=== PATIENT | female | born 1965 | race Caucasian/White ===

== ENCOUNTER 2024-12-07 06:56 | Day surgery (SDC) | payer OTHER ==
[2024-12-05 15:07] LABS: Absolute Eosinophils 0.2 K/uL (0-0.5); Absolute Lymphocytes (CBC) 1.9 K/uL (0.7-4.9); Absolute Monocytes 0.6 K/uL (0.1-1.3); Absolute Neutrophil 4.5 K/uL (1.8-8.0); Basophils % 0.4 % (0-1.3); Eosinophils % 2.7 % (0-4.4); Hematocrit 38.6 % (36.0-45.0); Hemoglobin 13.1 g/dL (12.0-15.0); Lymphocytes % 26.7 % (15.3-44.8); MCH 32.2 pg (27.0-35.0); MCHC 33.8 g/dL (32.0-36.0); MCV 95.1 fL (80-100); MPV 7.1 fL (7.6-11.3); Neutrophils % 62.2 % (41.7-73.7); Nucleated Red Blood Cells % 0.1 % (0-0); Platelets 347 thou/uL (152-406); RBC Red Blood Cell Count 4.06 M/uL (3.86-4.86); Red Cell Distribution Width 13.1 % (12.1-15.2)
[2024-12-05 15:23] LABS: ALT/SGPT 20 U/L (13-56); AST/SGOT 13 U/L (15-37); Albumin 3.8 g/dL (3.4-5.0); Alkaline Phosphatase 131 U/L (45-117); Anion Gap 8.9 mEq/L (5.0-15.0); BUN Blood Urea Nitrogen 13 mg/dL (7-18); Bicarbonate 27 mEq/L (21-32); Bilirubin Total 0.4 mg/dL (0.2-1.0); Globulin 3.7 g/dL (2.3-3.5); Glomerular Filtration Rate 81 ml/min (=/>90); Glucose Level 91 mg/dL (74-106); Lipase 96 U/L (13-75); Potassium 3.9 mEq/L (3.5-5.1); Protein, Total 7.5 g/dL (6.4-8.2); Sodium Level 136 mEq/L (136-145)
[2024-12-05 15:28] LABS: Bilirubin Direct < 0.2 mg/dL (0-0.2); Bilirubin Indirect, Calculated 0.2 mg/dL (0.2-0.8)
--- NOTE | 2024-12-05 15:35 | RAD REPORT ---
Procedure: Chest Pa And Lat (2 Views) HISTORY: Preop for gallbladder surgery COMPARISON: none FINDINGS: The lungs appear clear of acute infiltrate. No significant pleural effusion noted. The heart is normal size. IMPRESSION: No acute abnormality is displayed.
[2024-12-07] MEDS ORDERED: FENTANYL CITR 100 MCG/2 ML ONE ×2 (07:29→08:56)
[2024-12-07] MEDS ORDERED: ONDANSETRON 4 MG/2 ML VIAL ONE (07:29)
[2024-12-07] MEDS ORDERED: propofoL 200 MG/20 ML VIAL IV ONE (07:29)
[2024-12-07] MEDS ORDERED: MIDAZOLAM HCL 2 MG/2 ML INJ ONE (07:29)
[2024-12-07] MEDS ORDERED: LIDOCAINE 2% MPF 5 ML VIAL ONE (07:30)
[2024-12-07] MEDS ORDERED: ROCURONIUM 50 MG/5 ML VIAL IV ONE (07:30)
[2024-12-07] MEDS ORDERED: SUGAMMADEX SODIUM 200 MG/2 ML VIAL IV ONE (07:41)
[2024-12-07 07:45] LABS: ALT/SGPT 17 U/L (13-56); AST/SGOT 19 U/L (15-37); Albumin 3.7 g/dL (3.4-5.0); Alkaline Phosphatase 112 U/L (45-117); Bilirubin Total 0.5 mg/dL (0.2-1.0); Globulin 3.6 g/dL (2.3-3.5); Lipase 73 U/L (13-75); Protein, Total 7.3 g/dL (6.4-8.2)
[2024-12-07] MEDS: Ringers Lactate 1,000 ML IV ONE (07:45)
[2024-12-07 07:46] LABS: Bilirubin Direct < 0.2 mg/dL (0-0.2); Bilirubin Indirect, Calculated 0.3 mg/dL (0.2-0.8)
[2024-12-07] MEDS: CEFOXITIN SODIUM 1 GM/VIAL ONE (08:46)
[2024-12-07] MEDS ORDERED: KETOROLAC 30 MG/ML INJ ONE (08:56)
[2024-12-07] MEDS ORDERED: dexAMETHasone 4 MG/ML VIAL ONE (09:01)
--- NOTE | 2024-12-07 09:17 | P.BOP ---
Preoperative diagnosis: acute cholecystitis, symptomatic cholelithiasis, RUQ abd pain Postoperative diagnosis: SAME Primary procedure: Laparoscopic cholecystectomy Estimated blood loss: <10cc Specimen: gb Findings: as above Anesthesia: General Complications: None Transferred to: Recovery Room Condition: Good
[2024-12-07] MEDS: ONDANSETRON 4 MG/2 ML VIAL ONE (09:42)
[2024-12-07] MEDS: FENTANYL CITR 100 MCG/2 ML ONE (09:45)
[2024-12-07 09:49] VITALS: O2SAT 100
[2024-12-07] MEDS: CODEINE 30MG/APAP 300MG TAB ONE (10:15)
[2024-12-07 11:07] VITALS: BP 131/73; TEMP 98.8
--- NOTE | 2024-12-07 12:13 | OP ---
Date of Procedure: 12/07/2024 Surgeon: Juaquin Dietrich MD Preoperative Diagnoses: Acute cholecystitis, symptomatic cholelithiasis, right upper quadrant abdomi nal pain. Postoperative Diagnoses: Acute cholecystitis, symptomatic cholelithiasis, right upper quadrant abdom inal pain. Procedure: Laparoscopic cholecystectomy. Anesthesia: General plus local. Estimated Blood Loss: Less than 10 cc. Specimen: Gallbladder. Indications: This is a case of a 59-year-old patient who came with abdominal pain. 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 She also understands she has cholecystitis and symptomatic cholelithiasis and continued with this r ecurrent right upper quadrant pain. We offered her options that include laparoscopic, possible open cholecystectomy with benefits, alternatives, and risks including, but not limited to, infection, blee ding, damage to adjacent structures, anesthesia complication, choledocholithiasis, bile leak, pancrea titis, MO, and even . She also understands this may not relieve any symptoms. She might need m ore than one surgical intervention. She understood, signed a consent. Description Of Procedure: Patient was brought to the operating room, placed in supine position. Ane sthesia was induced without complication. Abdominal area was prepped and draped in usual sterile fas hion. Marcaine 0.5% was injected for local anesthetic followed by sharp incision of the skin in the infraumbilical region. Incision was carried down to fascia, which was opened under direct vision. P eritoneum was encountered, opened under direct vision. Vicryl #1 placed inside the fascia. Monet t rocar was carefully introduced. Pneumoperitoneum was obtained. I placed three more trocars, 5 mm ea ch one of them, one in the epigastric area, two in the right upper quadrant using the same technique which consisted of local anesthetic, sharp incision of the skin, introduction of the trocars under di rect vision. This allowed me to put a grasper in the fundus of the gallbladder, another grasper in t he infundibulum, retracting the gallbladder in the inferolateral fashion exposing the triangle of Taurus ot, obtaining critical view. Cystic duct and cystic artery were clearly isolated, freed circumferent ially, and a connection between those and the gallbladder were clearly identified. I proceeded to li gate those by using at least 3 clips proximal, 1 clip distal, ligation in the middle. Same was done with the cystic artery. No bile leak. No bleeding. The gallbladder was removed from liver using Han vie cauterizer and removed from abdominal cavity using EndoCatch through the umbilical incision. The area was inspected once again. No bile leak. No bleeding. At that moment, I proceeded to remove t he trocars under direct vision. Deflated the pneumoperitoneum. Closed the fascia with #1 Vicryl, ir rigated subcutaneous tissue, closed that with 3-0 chromic in a subcuticular fashion with Steri-Strips on top. Sponge counts and instrument counts were correct. Patient tolerated the procedure well. P atient sent to Recovery in stable condition. BETTY/STEVEN Voice ID: [id number] Report ID: [id number]
--- NOTE | 2024-12-07 12:19 | DS ---
Date of Discharge: 12/07/2024 Diagnoses: Acute cholecystitis, symptomatic cholelithiasis, right upper quadrant abdominal pain. Procedure: Laparoscopic cholecystectomy. Condition: Stable. Disposition: Home. Activity: As tolerated. No heavy lifting. Discharge Instructions: Follow up in my office in 1 week. Call for appointment at [phone]. Keep a sneha dry for 48 hours, then may shower. Keep Steri-Strips intact. For medications, see orders. BETTY/STEVEN Voice ID: [id number] Report ID: [id number]
== END 2024-12-07 10:50 | disposition home or self-care (01) ==
LOC: OR 06:56
PROVIDERS: ATTEND Surgery
PROC: 0FT44ZZ Resection of Gallbladder, Percutaneous Endoscopic Approach (ICD-10-PCS; principal; 2024-12-07 07:30)
DX: K80.10 Calculus of gallbladder with chronic cholecystitis without obstruction (principal); R10.11 Right upper quadrant pain
CPT/HCPCS: 85025; 80048; 36415 ×2; 80076 ×2; 88304; 83690 ×2; 71046; 47562; J2704; J1100; J2003; J2250; J3010 ×3; J0694; J2405 ×2; J7120; A4314

== ENCOUNTER 2025-02-06 07:28 | Day surgery (SDC) | payer OTHER ==
[2025-02-03 14:08] LABS: Absolute Eosinophils 0.1 K/uL (0-0.5); Absolute Monocytes 0.6 K/uL (0.1-1.3); Absolute Neutrophil 4.4 K/uL (1.8-8.0); Basophils % 0.4 % (0-1.3); Eosinophils % 1.4 % (0-4.4); Hematocrit 40.8 % (36.0-45.0); Hemoglobin 13.9 g/dL (12.0-15.0); Lymphocytes % 27.9 % (15.3-44.8); MCH 32.6 pg (27.0-35.0); MCHC 34.1 g/dL (32.0-36.0); MCV 95.5 fL (80-100); MPV 7.1 fL (7.6-11.3); Monocytes % 8.7 % (3.3-12.3); Neutrophils % 61.6 % (41.7-73.7); Nucleated Red Blood Cells % 0.1 % (0-0); Platelets 318 thou/uL (152-406); RBC Red Blood Cell Count 4.28 M/uL (3.86-4.86); Red Cell Distribution Width 12.7 % (12.1-15.2)
[2025-02-03 14:14] LABS: Anion Gap 6.7 mEq/L (5.0-15.0); Potassium 3.7 mEq/L (3.5-5.1)
[2025-02-06] MEDS ORDERED: Ringers Lactate 1,000 ML IV ONE (08:10)
[2025-02-06] MEDS ORDERED: propofoL 200 MG/20 ML VIAL IV ONE (09:44)
[2025-02-06] MEDS ORDERED: LIDOCAINE 1% MPF 30 ML VIAL ONE (09:44)
[2025-02-06 11:13] VITALS: O2SAT 100
[2025-02-06 11:14] VITALS: BP 140/56; TEMP 98.4
== END 2025-02-06 11:16 | disposition home or self-care (01) ==
LOC: OR 07:28
PROVIDERS: ATTEND Surgery
PROC: 0DBK8ZX Excision of Ascending Colon, Via Natural or Artificial Opening Endoscopic, Diagnostic (ICD-10-PCS; principal; 2025-02-06 09:15)
DX: Z12.11 Encounter for screening for malignant neoplasm of colon (principal); K64.8 Other hemorrhoids; K64.4 Residual hemorrhoidal skin tags; K57.30 Diverticulosis of large intestine without perforation or abscess without bleeding; K63.5 Polyp of colon
CPT/HCPCS: 85025; 80048; 36415; 88305; 45384; J2704; J2003; J7120